=== PATIENT | male | born 1990 | race Caucasian/White ===

== ENCOUNTER 2020-02-21 09:44 | Emergency (ER) | payer SELFPAY ==
[2020-02-21 10:01] VITALS: BP 151/106
--- NOTE | 2020-02-21 10:16 | ER Document Report ---
HPI - HPI Time Seen by Provider: 02/21/20 10:10 Notes: Otherwise healthy 29-year-old male presenting to the emergency department chief complaint of possible infection to his left lower extremity. Patient reports this is been ongoing for the last few days, worsening today. He states he tried squeezing the area yesterday and got a tiny amount of pus out. He denies any fevers, chills, he is not a diabetic. Past Medical History - General Information source: Patient - Social History Smoking Status: Current Every Day Smoker Frequency of alcohol use: Occasional Drug Abuse: None Family History: Reviewed & Not Pertinent - Medical History Medical History: Negative Surgical Hx: Negative Vertical Provider Document - CONSTITUTIONAL Notes: PHYSICAL EXAMINATION: GENERAL: Well-appearing, well-nourished and in no acute distress. HEAD: Atraumatic, normocephalic. EYES: Pupils equal round extraocular movements intact, conjunctiva are normal. ENT: Nares patent NECK: Normal range of motion LUNGS: No respiratory distress Musculoskeletal: Normal range of motion NEUROLOGICAL: Normal speech, normal gait. PSYCH: Normal mood, normal affect. SKIN: Erythema to left lower extremity over the dove area, no fluctuance noted, induration noted. Course - Re-evaluation Re-evalutation: 02/21/20 10:19 Patient was mildly tachycardic in triage with a heart rate of 109. Patient reports he feels anxious. He has not had any fever or chills. He has cellulitis to his left lower extremity. We will start him on antibiotics. ED return precautions discussed, patient verbalized understanding and agreement with same. - Vital Signs Vital signs: Temp Pulse Resp BP Pulse Ox 98.3 F 109 H 20 151/106 H 97 02/21/20 09:57 02/21/20 09:57 02/21/20 09:57 02/21/20 09:57 02/21/20 09:57 Discharge - Discharge Clinical Impression: Cellulitis of left lower leg Condition: Stable Disposition: HOME, SELF-CARE Additional Instructions: The rash is likely due to infection of your skin. You need to take the antibiotics as prescribed. Do not stop even if the rash goes away until you have completed all the antibiotics. Apply warm compresses to the area 3-4 times daily. Return if the redness extends more than 1 inch in any direction. Give the antibiotics 24 hours to kick in. You should also return if you develop fe vers with temperature greater than 101, persistent vomiting, worsening pain, or have any other symptoms that are concerning to you. Prescriptions: Sulfamethoxazole/Trimethoprim [Bactrim Ds Tablet] 1 tab PO BID #14 tablet Forms: Return to Work Referrals: [facility] [Provider Group] - Follow up as needed
== END 2020-02-21 10:19 | disposition home or self-care (01) ==
LOC: ER 09:44
DX: L03.116 Cellulitis of left lower limb (principal); F17.200 Nicotine dependence, unspecified, uncomplicated
CPT/HCPCS: 99283

== ENCOUNTER 2020-04-18 16:01 | Emergency (ER) | payer SELFPAY ==
[2020-04-18] MEDS ORDERED: SULFAMETHOXAZOLE/TRIMETHOPRIM 800-160 MG TABLET PO ONE (16:22)
--- NOTE | 2020-04-18 16:26 | ER Document Report ---
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 No fever. Had similar symptoms several months ago when he was treated for a leg infection. No fever ROS: See HPI - all other systems were reviewed and are otherwise negative Constitutional: no fever Integumentary: + rash Allergy: no hives Musculoskeletal: no extremity pain or swelling Neurological: no numbness/tingling, no weakness MEDICATIONS: I agree with the patient medications as charted by the RN. ALLERGIES: I agree with the allergies as charted by the RN. PAST MEDICAL HISTORY/PAST SURGICAL HISTORY: Reviewed and agree as charted by RN. SOCIAL HISTORY: Reviewed and agree as charted by RN. FAMILY HISTORY: No significant familial comorbid conditions directly related to patient complaint EXAM: Reviewed vital signs as charted by RN. CONSTITUTIONAL: Alert and oriented and responds appropriately to questions. Well-appearing; well-nourished HEAD: Normocephalic; atraumatic EYES: Conjunctivae clear, sclerae non-icteric ENT: normal nose; no rhinorrhea; moist mucous membranes; NECK: Supple without meningismus CARD: symmetric distal pulses RESP: Normal chest excursion without splinting or tachypnea ABD/GI: non-distended BACK: The back appears normal EXT: Normal ROM in all joints; no cyanosis, no effusions, no edema SKIN: Normal color for age and race; warm; dry; good turgor; there is erythema distal to the olecranon region on the volar aspect of the proximal left forearm near the elbow measuring 3 cm diameter without fluctuant areas present. NEURO: Moves all extremities equally; Motor and sensory function intact PSYCH: The patient's mood and manner are appropriate. Grooming and personal hygiene are appropriate. MDM: 29-year-old male with a cellulitis just distal to the left elbow, does not involve the joint region. No restriction of range of motion. No fluctuant areas for incision and drainage today. Patient prefers no incision and drainage. Would prefer antibiotics he was placed on Bactrim previously with resolution of symptoms. - Related Data Allergies/Adverse Reactions: No Known Allergies Allergy (Verified 04/18/20 16:16) Past Medical History - Social History Smoking Status: Unknown if Ever Smoked Family History: Reviewed & Not Pertinent Past Surgical History: Reports: Hx Orthopedic Surgery - left jaw x 2 Physical Exam - Vital signs Vitals: Temp Pulse Resp BP Pulse Ox 98.1 F 88 20 147/127 H 97 04/18/20 16:06 04/18/20 16:06 04/18/20 16:06 04/18/20 16:06 04/18/20 16:06 Course - Vital Signs Vital signs: Temp Pulse Resp BP Pulse Ox 98.1 F 88 20 147/127 H 97 04/18/20 16:06 04/18/20 16:06 04/18/20 16:06 04/18/20 16:06 04/18/20 16:06 - Laboratory Results Critical Laboratory Results Reviewed: No Critical Results - Radiology Results Critical Radiology Results Reviewed: No Critical Results Discharge - Discharge Clinical Impression: Cellulitis of left elbow Condition: Stable Disposition: HOME, SELF-CARE Additional Instructions: Take the medications as prescribed, warm compresses to the left elbow region to help with swelling and redness. Motrin Tylenol for pain. Return for worsening symptoms Prescriptions: Sulfamethoxazole/Trimethoprim [Bactrim Ds Tablet] 2 tab PO BID #28 tablet
[2020-04-18 16:29] VITALS: BP 160/96
== END 2020-04-18 16:27 | disposition home or self-care (01) ==
LOC: ER 16:01
DX: L03.114 Cellulitis of left upper limb (principal); L53.9 Erythematous condition, unspecified; Z86.14 Personal history of Methicillin resistant Staphylococcus aureus infection
CPT/HCPCS: 99283